=== PATIENT | male | born 1980 | race Caucasian/White ===

== ENCOUNTER 2017-08-13 19:01 | Emergency (ER) | payer OTHER ==
[2017-08-13 19:10] VITALS: BP 149/98; PULSE 85; TEMP 98.7; BMI 26.1
[2017-08-13] MEDS ORDERED: LIDOCAINE HCL 2% JELLY (30 ML/TUBE) TP ONE (19:58)
[2017-08-13] MEDS ORDERED: TETANUS AND DIPHTHERIA TOXOID 0.5 ML DISP.SYRIN IM ONE (19:58)
[2017-08-13] MEDS ORDERED: LIDOCAINE HCL 2% JELLY 10 ML CARTRIDGE ONE (20:01)
--- NOTE | 2017-08-13 20:03 | PDOC ---
History of Present Illness - General Chief Complaint: Laceration Stated Complaint: FALL INJURY Time Seen by Provider: 08/13/17 19:53 - History of Present Illness Initial Comments: 08/13/17 19:59 37 year old male c/o trip and fall and hit the back of head on unknown object at home. denies loc, [place], headache at this time. Past History - Past Medical History Allergies/Adverse Reactions: Allergies Allergy/AdvReac Type Severity Reaction Status Date / Time No Known Allergies Allergy Verified 08/13/17 19:06 Home Medications: Ambulatory Orders Acyclovir [Zovirax -] 200 mg PO 5XD 08/13/17 Omeprazole 20 mg PO ASDIR 08/13/17 COPD: No GI Disorders: Yes (GERD,IBS) Other medical history: HERPES - Surgical History Appendectomy: Yes - Suicide/Smoking/Psychosocial Hx Smoking History: Never smoked Have you smoked in the past 12 months: No Information on smoking cessation initiated: No Hx Alcohol Use: No Drug/Substance Use Hx: No Substance Use Type: None Review of Systems - Review of Systems Able to Perform ROS?: Yes Is the patient limited Bah[place]ian proficient: No Integumentary: Yes: Other (laceration) *Physical Exam - Vital Signs Last Vital Signs Temp Pulse Resp BP Pulse Ox 98.7 F 85 18 149/98 100 08/13/17 19:07 08/13/17 19:07 08/13/17 19:07 08/13/17 19:07 08/13/17 19:07 - Physical Exam General Appearance: Yes: Appropriately Dressed Extremity: positive: Normal Capillary Refill, Normal Inspection, Normal Range of Motion Integumentary: positive: Normal Color, Dry, Warm, Other (c shaped lacertion 4-5 cm to temporal area, ) Neurologic: positive: Fully Oriented, Alert, Normal Mood/Affect Procedures - Laceration/Wound Repair Head Wound Explored: clean Wound's Depth, Shape: irregular, flap (c shaped flap) Anesthesia: 2% Lidocaine Wound Debrided: minimal Wound Repaired With: [place] Suture Size/Type: 3:0 Number of Sutures: 12 Layer Closure: No Sterile Dressing Applied: Yes (bacitracin) Progress Note - Progress Note Progress Note: A: scalp laceration P: *DC/Admit/Observation/Transfer Diagnosis at time of Disposition: Occipital scalp laceration Qualifiers: Encounter type: initial encounter Qualified Code(s): S01.01XA - Laceration without foreign body of scalp, initial encounter - Discharge Dispostion Disposition: HOME - Referrals Referrals: Samuel Peters MD [Primary Care Provider] - - Patient Instructions Printed Discharge Instructions: DI for Laceration Repair, DI for Closed Head Injury Additional Instructions: return to the ER in 10 days for suture removal keep wound clean and dry - Post Discharge Activity
== END 2017-08-13 22:09 | disposition home or self-care (01) ==
LOC: JERFT 19:01
PROC: 0HQ0XZZ Repair Scalp Skin, External Approach (ICD-10-PCS; principal; 2017-08-13)
PROC: 3E0234Z Introduction of Serum, Toxoid and Vaccine into Muscle, Percutaneous Approach (ICD-10-PCS; 2017-08-13)
DX: S01.01XA Laceration without foreign body of scalp, initial encounter (principal); W18.39XA Other fall on same level, initial encounter; Y93.89 Activity, other specified; Y92.9 Unspecified place or not applicable
CPT/HCPCS: 70450-TC; 99281-25